=== PATIENT | male | born 1945 | race Caucasian/White ===

== ENCOUNTER 2022-07-02 07:43 | Day surgery (SDC) | payer MEDICARE, BC, SELFPAY ==
[2022-06-28 08:21] VITALS: BMI 32.8
--- NOTE | 2022-07-02 07:46 | P.HP_ITS ---
Same Day Surgery H&P Indication for Procedure/HPI DATE OF PROCEDURE: July 02, 2022 CHIEF COMPLAINT/INDICATIONFOR SURGICAL PROCEDURE: history of polyps PREOP DIAGNOSIS: history of polyps PLANNED PROCEDURE: Operation Date: 07/02/22 09:15 Proposed Procedures p colonoscopy G0105,Z86.010(Not Applicable) - Joe Bond MD Medications/Allergies* Home Medications Medication Instructions Recorded Confirmed Type atorvastatin 10 mg tablet 10 mg PO DAILY 06/07/22 06/28/22 History carbamazepine 200 mg tablet 200 mg PO BID 06/07/22 06/28/22 History clonidine HCl 0.1 mg tablet 0.1 mg PO TID 06/07/22 06/28/22 History doxazosin 8 mg tablet 8 mg PO DAILY 06/07/22 06/28/22 History hydralazine 50 mg tablet 50 mg PO TID 06/07/22 06/28/22 History hydrochlorothiazide 25 mg tablet 25 mg PO DAILY 06/07/22 06/28/22 History levothyroxine 88 mcg tablet 88 mcg PO DAILY 06/07/22 06/28/22 History prednisone 5 mg tablet 5 mg PO DAILY 06/07/22 06/28/22 History tacrolimus 1 mg tablet,extended 1 mg PO DAILY 06/07/22 06/28/22 History release 24 hr tamsulosin 0.4 mg capsule 0.4 mg PO DAILY 06/07/22 06/28/22 History amlodipine 10 mg tablet 10 mg PO DAILY 06/12/22 06/28/22 History oxygen-air delivery systems 06/12/22 06/28/22 History Allergies/Adverse Reactions Allergy/AdvReac Type Severity Reaction Status Date / Time aspirin Allergy Hives Verified 06/28/22 08:18 Iodinated Contrast Media Allergy ABd pain Verified 06/28/22 08:18 NSAIDS (Non-Steroidal Allergy Abd pain Verified 06/28/22 08:18 Anti-Inflamma Pertinent History/Comorbid Conditions* Social History Smoking and tobacco status: former smoker Pertinent Exam Findings alert, oriented x 3, clear to auscultation bilaterally, regular rate & rhythm, operative site marked and procedure specific exam findings Recommendations Surgery/Procedure today Coding Level of Care Code Acute Information Technology Manager for Lulu Fernandez
[2022-07-02 08:05] VITALS: BP 146/80; PULSE 67; RESP 18; TEMP 36.3; O2SAT 96
[2022-07-02] MEDS: sodium chloride 0.9% 1,000 ML 30 ML IV (08:20)
--- NOTE | 2022-07-02 08:48 | ANES.PREANE2 ---
Pre-Anesthetic Assessment Height/Weight: Height 1.8 m Weight 106.594 kg Temp Pulse Resp BP Pulse Ox O2 Del Method 97.4 F L 67 18 146/80 96 07/02/22 08:05 07/02/22 08:05 07/02/22 08:05 07/02/22 08:05 07/02/22 08:05 07/02/22 08:05 Preop Diagnosis: screen. Polyps Operation Date: 07/02/22 09:15 Proposed Procedures p colonoscopy G0105,Z86.010(Not Applicable) - Joe Bond MD Familial anesthetic complications: none Was Beta Nam taken within 24 hours: N/A Was Clonidine taken within 24 hours: Yes Last intake: Intake Last Liquid Date 07/01/22 Last Liquid Time 21:00 Last Solid Date 06/30/22 Last Solid Time 18:00 Social No alcohol and No tobacco Exam alert, oriented x 3, clear to auscultation bilaterally and regular rate & rhythm Airway Submandibular: within normal limits Cervical ROM: within normal limits Mallampati: Class II Dentition: false CV/HEM Hypertension Metabolic Hyperlipidemia and Morbid Obesity chronic steroids Anesthetic Plan ASA status: 3 Anesthesia: MAC Medications/Allergies Home Medications Medication Instructions Recorded Confirmed Last Taken Type atorvastatin 10 mg tablet 10 mg PO DAILY 06/07/22 07/02/22 07/01/22 History carbamazepine 200 mg tablet 200 mg PO BID 06/07/22 07/02/22 07/02/22 05:00 History clonidine HCl 0.1 mg tablet 0.1 mg PO TID 06/07/22 07/02/22 07/02/22 05:00 History doxazosin 8 mg tablet 8 mg PO DAILY 06/07/22 07/02/22 07/01/22 History hydralazine 50 mg tablet 50 mg PO TID 06/07/22 07/02/22 07/02/22 05:00 History hydrochlorothiazide 25 mg tablet 25 mg PO DAILY 06/07/22 07/02/22 07/02/22 05:00 History levothyroxine 88 mcg tablet 88 mcg PO DAILY 06/07/22 07/02/22 07/02/22 05:00 History prednisone 5 mg tablet 5 mg PO DAILY 06/07/22 07/02/22 07/02/22 05:00 History tacrolimus 1 mg tablet,extended 1 mg PO DAILY 0907/02/22 07/02/22 05:00 History release 24 hr tamsulosin 0.4 mg capsule 0.4 mg PO DAILY 06/07/22 07/02/22 07/01/22 History amlodipine 10 mg tablet 10 mg PO DAILY 06/12/22 07/02/22 07/02/22 05:00 History oxygen-air delivery systems 06/12/22 06/28/22 Unknown History cholecalciferol (vitamin D3) 50 2,000 unit PO DAILY 07/02/22 07/02/22 07/02/22 05:00 History mcg (2,000 unit) tablet (Vitamin D3) Allergies Allergy/AdvReac Type Severity Reaction Status Date / Time aspirin Allergy Hives Verified 06/28/22 08:18 Iodinated Contrast Media Allergy ABd pain Verified 06/28/22 08:18 NSAIDS (Non-Steroidal Allergy Abd pain Verified 06/28/22 08:18 Anti-Inflamma Current Medications Generic Name Dose Route Start Last Admin Trade Name Freq PRN Reason Stop Dose Admin Sodium Chloride 1,000 mls @ 30 mls/hr 07/02/22 08:00 07/02/22 08:20 Sodium Chloride 0.9% IV 07/03/22 07:59 30 mls/hr .Q24H MARSHALL Administration PFSH Anesthesia Social History Smoking and tobacco status: former smoker Data Anesthesia Cardiac Studies: No Data to Display
[2022-07-02 09:41] VITALS: BP 130/68; PULSE 51; RESP 14; TEMP 36.6; O2SAT 98
[2022-07-02 09:54] VITALS: BP 133/68; PULSE 49; RESP 16; O2SAT 95
--- NOTE | 2022-07-02 15:48 | ANE.PACU2 ---
Inpatient post-anesthesia follow up: Airway intact: Yes Vital signs: Temperature 97.8 F Pulse Rate 49 Respiratory Rate 16 Blood Pressure 133/68 Pulse Oximetry 95 Oxygen Delivery Me thod Room Air Oxygen Flow Rate Fraction of Inspir ed Oxygen Hydration adequate: Yes Nausea and vomiting: No Pain level: 1 Mental status: Baseline
== END 2022-07-02 10:24 | disposition home or self-care (01) ==
PROVIDERS: PCP Family Medicine; Visit Provider Internal Medicine
PROC: 0DJD8ZZ Inspection of Lower Intestinal Tract, Via Natural or Artificial Opening Endoscopic (ICD-10-PCS; CPT 45378; principal; 2022-07-02 09:15)
DX: Z86.010 Personal history of colon polyps (principal); Z87.891 Personal history of nicotine dependence; I10 Essential (primary) hypertension; E66.01 Morbid (severe) obesity due to excess calories; Z68.32 Body mass index [BMI] 32.0-32.9, adult; Z79.52 Long term (current) use of systemic steroids
CPT/HCPCS: G0121; J2704; J7030

== ENCOUNTER → 2024-05-06 09:59 | Outpatient (BNVA) | payer MEDICARE, BC, SELFPAY | PROVIDERS: PCP Family Medicine; Visit Provider Podiatrist Foot & Ankle Surgery | DX: M79.671 Pain in right foot (principal); M79.672 Pain in left foot; M79.675 Pain in left toe(s) | CPT/HCPCS: 73630; 99203 ==

== ENCOUNTER → 2024-05-28 10:31 | Outpatient (BNVA) | payer MEDICARE, BC, SELFPAY | PROVIDERS: PCP Family Medicine; Visit Provider Podiatrist Foot & Ankle Surgery | DX: M79.675 Pain in left toe(s) (principal); M79.672 Pain in left foot | CPT/HCPCS: 20600; J1100; J3301 ==

== ENCOUNTER 2025-08-04 12:57 | Outpatient (RCR) | payer MEDICARE, BC, SELFPAY | END 2025-08-06 23:59 | disposition home or self-care (01) | LOC: WPT 12:57 | PROVIDERS: Visit Provider Family Medicine | DX: M47.26 Other spondylosis with radiculopathy, lumbar region (principal); M54.50 Low back pain, unspecified | CPT/HCPCS: 97110; 97112; 97161; 97530 ==

== ENCOUNTER 2025-08-31 13:50 | Outpatient (RCR) | payer MEDICARE, BC, SELFPAY | END 2025-09-05 23:59 | disposition home or self-care (01) | LOC: WPT 13:50 | PROVIDERS: Visit Provider Family Medicine | DX: M47.26 Other spondylosis with radiculopathy, lumbar region (principal); M54.50 Low back pain, unspecified | CPT/HCPCS: 97110; 97112; 97116; 97530 ==

== ENCOUNTER 2025-09-16 13:56 | Outpatient (RCR) | payer MEDICARE, BC, SELFPAY | END 2025-09-21 10:05 | disposition home or self-care (01) | LOC: WPT 13:56 | PROVIDERS: Visit Provider Family Medicine | DX: M47.26 Other spondylosis with radiculopathy, lumbar region (principal) | CPT/HCPCS: 97110; 97112; 97530 ==